=== PATIENT | female | born 1965 | race Caucasian/White ===

== ENCOUNTER 2018-07-24 06:56 | Day surgery (SDC) | payer OTHER ==
[2018-07-24] MEDS ORDERED: SCOPOLAMINE HYDROBROMIDE 1.5MG/72HR PATCH TD ONE ×2 (08:39→08:48)
[2018-07-24] MEDS ORDERED: FAMOTIDINE 20 MG/2 ML VIAL ONE ×2 (08:39→08:48)
[2018-07-24] MEDS ORDERED: LACTATED RINGERS 1,000 ML IV ONE (08:39)
[2018-07-24] MEDS ORDERED: LACTATED RINGERS 1,000 ML IV.SOLN IV ONE ×2 (08:48)
[2018-07-24] MEDS ORDERED: ROCURONIUM BROMIDE 10 MG/ML 5ML VIAL ONE (08:48)
[2018-07-24] MEDS ORDERED: SEVOFLURANE 250 ML LIQUID IH ONE (08:48)
[2018-07-24] MEDS ORDERED: MEPERIDINE (NF) 50 MG/ML VIAL ONE ×2 (08:48→11:58)
[2018-07-24] MEDS ORDERED: ONDANSETRON HCL/PF 4 MG/ 2ML VIAL ONE (08:48)
[2018-07-24] MEDS ORDERED: DESFLURANE 240 ML LIQUID IH ONE (08:48)
[2018-07-24] MEDS ORDERED: SUGAMMADEX SODIUM 200 MG/2 ML VIAL IV ONE (08:48)
[2018-07-24] MEDS ORDERED: ceFAZolin SODIUM 1 GM VIAL ONE (08:48)
[2018-07-24] MEDS ORDERED: DEXAMETHASONE SOD PHOS 4 MG/ML VIAL ONE (08:48)
[2018-07-24] MEDS ORDERED: PROPOFOL 200 MG/20 ML VIAL IV ONE (08:48)
[2018-07-24] MEDS ORDERED: KETOROLAC TROMETHAMINE 30 MG/1ML VIAL ONE (08:48)
[2018-07-24] MEDS ORDERED: ACETAMINOPHEN 1,000 MG/100 ML INJ IV ONE (08:48)
[2018-07-24] MEDS ORDERED: ENOXAPARIN SODIUM 40 MG/0.4 ML DISP.SYRIN SQ ONE (09:31)
[2018-07-24] MEDS ORDERED: fentaNYL CITRATE/PF 100 MCG/2 ML INJ. ONE (10:22)
[2018-07-24] MEDS ORDERED: MIDAZOLAM HCL 2 MG/2 ML VIAL ONE (10:22)
== END 2018-07-24 12:53 | disposition other institution (70) ==
LOC: OPSURG 06:56
PROVIDERS: ATTEND Surgery
DX: E66.01 Morbid (severe) obesity due to excess calories (principal); Z68.35 Body mass index [BMI] 35.0-35.9, adult; E11.9 Type 2 diabetes mellitus without complications; I10 Essential (primary) hypertension; E78.00 Pure hypercholesterolemia, unspecified
CPT/HCPCS: 43235; J0690; J1100; J1650; J1885; J2175; J2250; J2405; J2704; J3010; 43775; A9270-GY; J7120

== ENCOUNTER 2018-07-24 12:54 | Inpatient (IN) | payer OTHER ==
[2018-07-24] MEDS ORDERED: MORPHINE SULFATE 10 MG/ML VIAL IVP PRN (13:13)
[2018-07-24] MEDS ORDERED: MORPHINE SULFATE 5 MG/ML ML IV PRN (13:13)
[2018-07-24] MEDS ORDERED: PROMETHAZINE HCL 25 MG in 0.9 % SODIUM CHLORIDE 50 ML IV PRN (13:13)
[2018-07-24] MEDS ORDERED: LEVALBUTEROL HCL 1.25 MG/3 ML AMPUL.NEB NEB PRN (13:13)
[2018-07-24] MEDS ORDERED: LABETALOL HCL 100 MG/20 ML IVP STA ×2 (13:23→15:20)
--- NOTE | 2018-07-24 13:33 | History and Physical Report ---
History of Present Illnes - History of Present Illness Reason for Visit: S/P Gastric Sleeve History of Present Illness: Patient is a 53-year-old white female who has tried multiple diets and exercise programs with no success. Patient had the gastric band completed and lost 100 pounds but the band slipped off and was removed. Since then patient has put on a significant amount of weight. Patient and surgeon decided to proceed with gastric sleeve procedure. Procedure went well with no complications-patient will be admitted and monitored s/p surgical intervention. - Past Medical History Cardiac: HTN Pulmonary: Other (TB 4years ago and treated) DRILL [employer]ER: Migraine Gastrointestinal: GERD Psych: Anxiety, Depression Musculoskeletal: denies: Chronic low back pain Rheumatologic: denies: Fibromyalgia ENT: denies: Sinusitis Renal/: UTI Endocrine: Diabetes, obesity Grav: 5 Para: 2 Ab: 3 (1 twin ) - Past Surgical History Past Surgical History: Cholecystectomy, Hysterectomy, Other (lap band) - Past Family History Mother Family History: Other (healthy) Father Family History: CAD, - Past Social History Smoke: No Alcohol: None Drugs: None Lives: With Family Domestic Violence: Negative - Health Maintenance Health Maintenance: Influenza Vaccine Influenza Vaccine: Current for this Influenza Season Pneumonia Vaccine: No Resuscitation Status: Resusciation Status Resuscitation Status Full Code - Unable to Obtain History Unable to Obtain: No Review of Systems - Review of Systems Constitutional: negative: Fever, Chills Eyes: negative: pain, vision change ENT: negative: Ear Pain, Nose Pain, Throat Pain Respiratory: negative: Cough, Shortness of Breath Cardiovascular: negative: Chest Pain Gastrointestinal: Nausea, Abdominal Pain (s/p gastric sleeve). negative: Vomiting Genitourinary: negative: Dysuria Musculoskeletal: negative: Back Pain Skin: negative: Rash Neurological: Weakness - Medications/Allergies Allergies/Adverse Reactions: Allergies Allergy/AdvReac Type Severity Reaction Status Date / Time Sulfa (Sulfonamide Allergy Verified 07/24/18 13:05 Antibiotics) Current Inpatient Medications: Current Inpatient Medications Alprazolam (Xanax) 1 mg PO Q12H [facility] Stop: 08/07/18 13:29 Cefazolin Sodium/Dextrose (Cefazolin 1 G/50 Ml-Dextrose) 1 gm IV Q8H [place] Stop: 07/25/18 02:31 Enoxaparin Sodium (Lovenox) 40 mg SQ QD [place] Stop: 08/08/18 13:59 Famotidine (Pepcid) 20 mg IVP BID [facility] Stop: 07/28/18 20:59 Promethazine HCl 25 mg/ Sodium (Chloride) 51 mls @ 600 mls/hr IV Q6 PRN PRN Reason: Nausea / Vomiting Stop: 07/28/18 13:12 Sodium Chloride (Normal Saline) 1,000 mls @ 150 mls/hr IV Q8H [facility] Ketorolac Tromethamine (Toradol) 30 mg IVP Q6 PRN PRN Reason: For Mild Pain Stop: 07/28/18 13:12 Labetalol HCl (Trandate) 20 mg IVP NOW [facility] Stop: 07/24/18 13:24 Levalbuterol HCl (Xopenex) 1.25 mg NEB Q4 PRN PRN Reason: SOA, Dyspnea, or Wheezing Stop: 07/28/18 13:12 Miscellaneous (Chem Sticks) 1 each MC Q6H [facility] Miscellaneous (Telmisartan [Telmisartan]) 20 mg PO DAILY [facility] Morphine Sulfate (Morphine Sulfate) 4 mg IVP Q4H PRN PRN Reason: Pain-if unable to take PO Ondansetron HCl (Zofran 4 Mg/2 Ml) 4 mg IVP Q6H PRN PRN Reason: Nausea / Vomiting Stop: 07/28/18 13:12 Sertraline HCl (Zoloft) 50 mg PO DAILY [facility] Exam - Exam General: Alert, Oriented to Person, Oriented to Place, Oriented to Time, Mild distress HEENT: Atraumatic, PERRLA, Mouth Mucous membr. moist/[place], Nose Mucous membr. moist/[place] Neck: Normal Range of Motion Carotids: no bruit Lungs: Clear to auscultation, Normal air movement, Speaks full Sentences Cardiovascular: Regular rate, Normal S1, Normal S2 Abdomen: Soft, Decreased Bowel Sounds Integumentary: [place], Warm, Dry Extremities: No edema, Normal pulses, No tenderness/swelling Neurological: Normal speech, Strength Equal Bilat, Sensation intact Psych/Mental Status: Mental status NL, Mood NL Assessment/Plan - Assessment/Plan (1) S/P gastric surgery Status: Acute Current Visit: Yes Assessment: LCTA, legs are without pain/tenderness, HRRR, incision site dressings are dry & intact x 5. Patient is experiencing some nausea with dry heaves- moderate abdominal discomfort Plan: Plan is to have patient up and walking frequently, SCDs while in bed, and Lovenox to prevent DVTs, using IS frequently to prevent resp illness, PPI IV, IVF until patient can tolerate oral, will monitor incision sites for infection, will monitor VS, lungs, and bowel (2) Morbid (severe) obesity due to excess calories Status: Acute Current Visit: Yes Plan: S/P Gastric Sleeve (3) Hypertension Status: Acute Current Visit: Yes Qualifiers: Hypertension type: essential hypertension Qualified Code(s): I10 - Essential (primary) hypertension Assessment: Patient arrived from PACU with blood pressure > 190. Will give Labetolol and monitor closely Plan: Will give labetolol and monitor BP (4) Type 2 diabetes mellitus Status: Acute Current Visit: Yes Qualifiers: Diabetes mellitus terminal operator insulin use: unspecified terminal operator insulin use status Diabetes mellitus complication status: with hyperglycemia Qualified Code(s): E11.65 - Type 2 diabetes mellitus with hyperglycemia Assessment: Will monitor for s/sx of hypo/hyperglycemic Plan: Will check blood sugars every 6 hours and give SSI (5) GERD (gastroesophageal reflux disease) Status: Acute Current Visit: Yes Qualifiers: Esophagitis presence: without esophagitis Qualified Code(s): K21.9 - Gastro-esophageal reflux disease without esophagitis Assessment: Stable with home meds Plan: will give PPI IV (6) Anxiety and depression Status: Acute Current Visit: Yes Assessment: Stable on home meds Plan: Will monitor and continue alprazolam (7) Hypercholesteremia Status: Acute Current Visit: Yes Assessment: Stable on home meds VTE Assessment - RISK FACTOR SCORE VTE RISK FACTOR SCORES: AGE 40-60 YEARS, OBESITY, MAJOR SURGERY/ANESTHESIA TIME > 1 HOUR (Lovenox daily, frequent ambulation, SCDs while in bed)
[2018-07-24] MEDS ORDERED: LABETALOL HCL 20 MG/4 ML SYRINGE IV ONE ×2 (13:47→15:21)
[2018-07-24] MEDS: 0.9 % SODIUM CHLORIDE 1,000 ML IV SCH ×2 (13:57→20:26)
[2018-07-24] MEDS: INSULIN REGULAR, HUMAN 100 UNIT/ML 3ML VIAL IV SCH ×2 (14:22→20:15)
[2018-07-24] MEDS ORDERED: KETOROLAC TROMETHAMINE 60 MG/2 ML VIAL ONE (14:29)
[2018-07-24] MEDS: KETOROLAC TROMETHAMINE 30 MG/1ML VIAL IVP PRN (14:32)
[2018-07-24 15:04] VITALS: BMI 34.7
[2018-07-24] MEDS: CEFAZOLIN SODIUM/DEXTROSE,ISO 1 GM/50 ML PIGGYBACK IV SCH (18:32)
[2018-07-24] MEDS: ALPRAZOLAM 0.5 MG TABLET PO SCH (20:24)
[2018-07-24] MEDS: FAMOTIDINE 20 MG/2 ML VIAL IVP SCH (20:25)
[2018-07-25] MEDS: CEFAZOLIN SODIUM/DEXTROSE,ISO 1 GM/50 ML PIGGYBACK IV SCH (02:11)
[2018-07-25] MEDS: INSULIN REGULAR, HUMAN 100 UNIT/ML 3ML VIAL IV SCH ×4 (02:12→19:25)
[2018-07-25] MEDS: KETOROLAC TROMETHAMINE 30 MG/1ML VIAL IVP PRN (05:54)
[2018-07-25] MEDS: 0.9 % SODIUM CHLORIDE 1,000 ML IV SCH ×3 (05:54→19:04)
[2018-07-25] MEDS: ONDANSETRON HCL/PF 4 MG/ 2ML VIAL IVP PRN ×2 (05:56→16:50)
[2018-07-25] MEDS: ALPRAZOLAM 0.5 MG TABLET PO SCH ×2 (08:24→20:39)
--- NOTE | 2018-07-25 08:26 | Inpatient Progress Note ---
Subjective - Required Recertification Statement I anticipate X number of days because-include discharge plan: 1 - Review of Systems Subjective: Patient doing ok. She has been passing gas. Nausea controlled. Objective - Exam Vitals and I&O: Vital Signs Temp 98.1 F 07/25/18 06:00 Pulse 86 07/25/18 06:00 Resp 20 07/25/18 06:00 BP 162/82 07/25/18 06:00 Pulse Ox 96 07/25/18 06:00 Intake & Output 07/24/18 07/24/18 07/25/18 11:59 23:59 11:59 Intake Total 1620 1030 Output Total 900 250 Balance 720 780 Weight 91.626 kg Intake: IV 1500 900 Left Hand 1500 900 Oral 120 130 Output: Urine 900 250 Other: Voiding Method Toilet Toilet # Voids 1 1 General: Alert, Oriented to Person, Oriented to Place, Oriented to Time, Cooperative, No acute distress Lungs: Clear to auscultation, Normal air movement, Speaks full Sentences Cardiovascular: Regular rate Abdomen: Normal bowel sounds, Soft. No: No tenderness (Bandages C/D/I. + BS.) Assessment/Plan - Assessment/Plan (1) Hypertension Status: Acute Current Visit: Yes Qualifiers: Hypertension type: essential hypertension Qualified Code(s): I10 - Essential (primary) hypertension Plan: Patient will get her ARB today. Watch. (2) S/P gastric surgery Status: Acute Current Visit: Yes Plan: Advance diet as tolerated. IS. Lovenox. SCD (3) Type 2 diabetes mellitus Status: Acute Current Visit: Yes Qualifiers: Diabetes mellitus terminal system operator insulin use: unspecified retirement insulin use status Diabetes mellitus complication status: with hyperglycemia Qualified Code(s): E11.65 - Type 2 diabetes mellitus with hyperglycemia Plan: BS 180-220. Add SSI. May need to add lantus when tolerating po better.
[2018-07-25] MEDS: SERTRALINE HCL 50 MG TABLET PO SCH (08:59)
[2018-07-25] MEDS: TELMISARTAN 20 MG PO SCH ×2 (09:08→19:12)
[2018-07-25] MEDS ORDERED: 0.9 % SODIUM CHLORIDE 50 ML IV ONE (09:35)
[2018-07-25] MEDS: FAMOTIDINE 20 MG/2 ML VIAL IVP SCH ×2 (09:44→20:40)
[2018-07-25] MEDS: INSULIN LISPRO 100 UNIT/ML 3ML VIAL SQ SCH ×3 (12:57→19:26)
[2018-07-25] MEDS ORDERED: ENOXAPARIN SODIUM 40 MG/0.4 ML DISP.SYRIN SQ SCH (14:00)
[2018-07-25] MEDS: HYDROcodone /APAP 10/325 1 EACH TABLET PO PRN (17:28)
[2018-07-25] MEDS ORDERED: MAGNESIUM, ALUMINUM HYDROXIDE 30 ML UDC PO ONE (18:36)
[2018-07-25] MEDS ORDERED: MAG HYDROX/ALUMINUM HYD/SIMETH 30 ML UDC PO ONE (18:37)
[2018-07-25] MEDS ORDERED: PROMETHAZINE HCL 25 MG/ML VIAL ONE (20:43)
[2018-07-25] MEDS ORDERED: 0.9 % SODIUM CHLORIDE 100 ML IV ONE (20:46)
[2018-07-26] MEDS: 0.9 % SODIUM CHLORIDE 1,000 ML IV SCH (02:14)
[2018-07-26] MEDS: INSULIN REGULAR, HUMAN 100 UNIT/ML 3ML VIAL IV SCH ×2 (02:17→08:11)
[2018-07-26] MEDS ORDERED: amLODIPine BESYLATE 5 MG TABLET ONE (08:00)
[2018-07-26] MEDS: FAMOTIDINE 20 MG/2 ML VIAL IVP SCH (08:00)
[2018-07-26] MEDS: HYDROcodone /APAP 10/325 1 EACH TABLET PO PRN (08:06)
[2018-07-26] MEDS: TELMISARTAN 20 MG PO SCH (08:06)
[2018-07-26] MEDS: ALPRAZOLAM 0.5 MG TABLET PO SCH (08:07)
[2018-07-26] MEDS: SERTRALINE HCL 50 MG TABLET PO SCH (08:08)
[2018-07-26] MEDS: INSULIN LISPRO 100 UNIT/ML 3ML VIAL SQ SCH (08:13)
--- NOTE | 2018-07-26 08:25 | Discharge Summary ---
Discharge Summary - Discharge Sumary History of Present Illness: Patient is a 53-year-old white female who has tried multiple diets and exercise programs with no success. Patient had the gastric band completed and lost 100 pounds but the band slipped off and was removed. Since then patient has put on a significant amount of weight. Patient and surgeon decided to proceed with gastric sleeve procedure. Procedure went well with no complications-patient will be admitted and monitored s/p surgical intervention. Condition at Discharge: Stable Home Medications: Ambulatory Orders Medication Instructions Recorded Alprazolam [Xanax XR] 1 mg PO Q12 07/24/18 Baclofen 10 mg PO DAILY PRN 07/24/18 Dexlansoprazole [Dexilant] 60 mg PO DAILY 07/24/18 Exenatide Microspheres [Bydureon] 2 mg SQ WEEK 07/24/18 Hydrocodone/Ibuprofen 1 each PO TID 07/24/18 [Hydrocodone-Ibuprofen 7.5-200] Insulin Aspart [Novolog Flexpen] 15 unit SQ TID 07/24/18 Insulin Degludec [Tresiba 10 unit SQ DAILY 07/24/18 Flextouch U-100] Metformin HCl 3,000 mg PO DAILY 07/24/18 Ranitidine HCl 75 mg PO DAILY 07/24/18 Sertraline HCl [Zoloft] 50 mg PO DAILY 07/24/18 Telmisartan 20 mg PO DAILY 07/24/18 Consultations this Visit: None Procedures this Visit: Other (s/p gastric sleeve) Allergies/Adverse Reactions: Allergies Allergy/AdvReac Type Severity Reaction Status Date / Time Sulfa (Sulfonamide Allergy Verified 07/24/18 13:05 Antibiotics) Hospital Course: Patient did well post op from her sleeve gastrectomy. SCD, lovenox, IS, and ambulation were utilitized. Patient with HTN - BP improved after antihypertensives were restarted. Pain controlled. Diet advanced as tolerated. Discharged home in stable condition.
[2018-07-26] MEDS ORDERED: IRBESARTAN 300 MG PO SCH (09:00)
[2018-07-26] MEDS ORDERED: amLODIPine BESYLATE 5 MG TABLET PO SCH (09:00)
[2018-07-26] MEDS: ONDANSETRON HCL/PF 4 MG/ 2ML VIAL IVP PRN (09:06)
[2018-07-26 09:18] VITALS: BP 142/77
== END 2018-07-26 09:18 | disposition home or self-care (01) | DRG 641 ==
LOC: SOUTH 12:54
PROVIDERS: ADMIT Nurse Practitioner Family; ATTEND Nurse Practitioner Family
DX: E66.01 Morbid (severe) obesity due to excess calories (principal); Z68.35 Body mass index [BMI] 35.0-35.9, adult; E11.9 Type 2 diabetes mellitus without complications; I10 Essential (primary) hypertension; E78.00 Pure hypercholesterolemia, unspecified; K21.9 Gastro-esophageal reflux disease without esophagitis; F41.8 Other specified anxiety disorders
CPT/HCPCS: 99231; 99238; J1650; J1815; J1885; J2270; J2405; J2550; J3490; J7030